=== PATIENT | female | born 1985 | race Caucasian/White ===

== ENCOUNTER 2018-05-13 11:28 | Outpatient (CLI) | payer OTHER ==
[2018-05-13 12:09] LABS: APPEARANCE,URINE CLOUDY; BILIRUBIN,URINE NEGATIVE (NEGATIVE); COLOR,URINE YELLOW; GLUCOSE, URINE NEGATIVE (NEGATIVE); KETONES,URINE TRACE mg/dL (NEGATIVE); LEUKOCYTE ESTERASE,URINE NEGATIVE (NEGATIVE); NITRITE,URINE NEGATIVE (NEGATIVE); PROTEIN,URINE NEGATIVE (NEGATIVE); URINE SPECIFIC GRAVITY 1.019; UROBILINOGEN,URINE NEGATIVE mg/dL (<2.0)
[2018-05-13 12:21] LABS: URINE AMPHETAMINES SCREEN NEGATIVE; URINE BARBITURATES SCREEN NEGATIVE; URINE BENZODIAZEPINES SCREEN NEGATIVE; URINE COCAINE SCREEN NEGATIVE; URINE MARIJUANA (THC) SCREEN NEGATIVE; URINE METHADONE SCREEN NEGATIVE; URINE PHENCYCLIDINE SCREEN NEGATIVE
--- NOTE | 2018-05-13 13:43 | Non Stress Test Report ---
Non Stress Test Datetime Report Generated by CPN: 05/13/2018 13:42 DEMOGRAPHIC EGA NST: 35.0 INDICATION Indication for Study: Other Indication for Study (NST) Other: patient fall VITAL SIGNS Temperature - NST: 98.8 Pulse - NST: 85 RESP - NST: 18 NBPSYS NST: 132 NBPDIA NST: 62 MONITORING Monitor Explained: Monitor Explained; Test Explained; Patient Verbalized Understanding Time on Monitor: 05/13/2018 11:52 Time off Monitor: 05/13/2018 12:56 NST Duration: 64 NST INTERVENTIONS NST Interventions: PO Hydration Physician Notified NST: Dr. Delcid BABY A: [id number] BABY A Movement : Present Contraction Frequency : irritability FHR Baseline : 130 Accelerations : 15X15 Decelerations : None Variability : Moderate 6-25bpm NST Review: Meets Criteria for Reactive NST NST Review and Verified By : PRESTON Reza NST Results: Reactive NST REPORT Report Trigger: Send Report
== END 2018-05-13 13:07 | disposition home or self-care (01) ==
LOC: LC 11:28
PROVIDERS: ATTEND Obstetrics & Gynecology Gynecology
PROC: 4A1HXCZ Monitoring of Products of Conception, Cardiac Rate, External Approach (ICD-10-PCS; principal; 2018-05-13)
DX: Z36.89 Encounter for other specified antenatal screening (principal); Z91.81 History of falling
CPT/HCPCS: 59025; 80307; 81001

== ENCOUNTER 2018-05-13 13:15 | Emergency (ER) | payer OTHER ==
[2018-05-13] MEDS ORDERED: ACETAMINOPHEN 325 MG TABLET PO ONE (14:02)
--- NOTE | 2018-05-13 14:06 | ER Document Report ---
ED General - General Chief Complaint: Fall Stated Complaint: WC FALL Time Seen by Provider: 05/13/18 14:02 Mode of Arrival: Ambulatory Information source: Patient, [facility] Records Notes: 33-year-old female at 35 weeks gestation presents with complaint of left ankle and left low back pain. Patient was recently evaluated by labor and delivery and states that she was monitored for a few hours prior to coming to the emergency department. Labor and delivery is in our hospital. She reports that just prior to arrival she had a lip and almost complete fall while at work. She states that she was able to grab onto the doorway and prevent falling all the way but since that time has experienced left sided low back pain and left ankle pain. Patient denies head injury, abdominal pain, vaginal bleeding. She reports an uneventful thus far. Patient denies head injury. TRAVEL OUTSIDE OF THE [place] IN LAST 30 DAYS: No - HPI Onset: Just prior to arrival Onset/Duration: Sudden Quality of pain: Achy, Throbbing Severity: Moderate Associated symptoms: denies: Chest pain, Diarrhea, Headache, Nausea, Vomiting, Shortness of breath Exacerbated by: Movement, Walking Relieved by: Remaining still Similar symptoms previously: No Recently seen / treated by doctor: Yes - Labor and delivery prior to arrival - Related Data Allergies/Adverse Reactions: No Known Allergies Allergy (Verified 05/13/18 12:09) Past Medical History - General Information source: Patient, [facility] Records - Social History Smoking Status: Former Smoker Frequency of alcohol use: None Drug Abuse: None Lives with: Family Family History: Reviewed & Not Pertinent Patient has suicidal ideation: No Patient has homicidal ideation: No - Medical History Medical History: Negative - Immunizations Hx Diphtheria, Pertussis, Tetanus Vaccination: No Review of Systems - Review of Systems Notes: REVIEW OF SYSTEMS: CONSTITUTIONAL : Denies fever, chills, or sweats. Denies recent illness. Denies weight loss, recent hospitalizations. EENT: Denies visual changes, eye pain. Denies sore throat, oral lesions, difficulty swallowing. CARDIOVASCULAR: Denies chest pain. Denies palpitations. Denies lower extremity edema. RESPIRATORY: Denies cough. Denies shortness of breath, wheezing. GASTROINTESTINAL: Denies abdominal pain or distention. Denies nausea, vomiting , or diarrhea. Denies blood in vomitus, stools, or per rectum. Denies black, tarry stools. Denies constipation. GENITOURINARY: Denies difficulty urinating, painful urination, frequency, blood in urine, or vaginal discharge. MUSCULOSKELETAL: Denies neck pain or stiffness. SKIN: Denies rash, lesions or sores. HEMATOLOGIC : Denies easy bruising or bleeding. LYMPHATIC: Denies swollen glands. NEUROLOGICAL: Denies confusion or altered mental status. Denies loss of consciousness. Denies dizziness or lightheadedness. Denies headache. Denies weakness or paralysis. Denies problems difficulty with ambulation, slurred speech. Denies sensory loss, numbness, or tingling. Denies seizures. PSYCHIATRIC: Denies anxiety or stress. Denies depression, suicidal ideation, or homicidal ideation. Denies visual or auditory hallucinations. Physical Exam - Vital signs Vitals: Temp Pulse Resp BP Pulse Ox 98.1 F 82 20 112/65 98 05/13/18 13:21 05/13/18 13:21 05/13/18 13:21 05/13/18 13:21 05/13/18 13:21 - Notes Notes: PHYSICAL EXAMINATION: GENERAL: Well-appearing, well-nourished and in no acute distress. HEAD: Atraumatic, normocephalic. EYES: Pupils equal round and reactive to light, extraocular movements intact, conjunctiva are normal. ENT: Nares patent, oropharynx clear without exudates. Moist mucous membranes. NECK: Normal range of motion, supple without lymphadenopathy LUNGS: Breath sounds clear to auscultation bilaterally and equal. No wheezes rales or rhonchi. HEART: Regular rate and rhythm without murmurs ABDOMEN: Soft, nontender, nondistended abdomen. No guarding, no rebound. No masses appreciated. Female : deferred Musculoskeletal: Normal range of motion, no pitting or edema. No cyanosis. Left ankle without tenderness, deformity, swelling, ecchymosis. PT and DP pulse intact. Patient able to wiggle her toes. She is ambulating without difficulty. Left lumbar paraspinal tenderness with palpation. No ecchymosis. No midline tenderness of the lumbar spine. NEUROLOGICAL: Cranial nerves grossly intact. Normal speech, normal gait. Normal sensory, motor exams PSYCH: Normal mood, normal affect. SKIN: Warm, Dry, normal turgor, no rashes or lesions noted. Course - Re-evaluation Re-evalutation: 05/13/18 20:17 33-year-old female at 35 weeks gestation presents after a slip fall at work prior to arrival. She is coming from labor and delivery where she was monitored for a few hours and reports that everything appeared well with the baby. Patient currently complaining of left low back pain and left ankle pain. Exam is significant for reproducible tenderness of the low back pain. Patient has no significant tenderness of the ankle or foot. She has no obvious deformity. She has been ambulating. The auto ankle roll patient has unlikely sustained a fracture of the ankle. No imaging will be performed at this time. Patient was provided an Pranav wrap. She was advised to rest, ice and elevate when possible. Patient agreeable to skip imaging of her ankle and back at this time. She was advised to ice and take Tylenol as needed. Patient was evaluated and treated as appropriate for the patient's presenting symptoms and complaint, with consideration of any critical or life threatening conditions that may be associated with their obtained history and exam as noted above. All results were discussed with patient. Patient provided the opportunity to ask questions, and express concerns. Patient was educated on treatments based on their presumed diagnosis as noted above. At this time we will discharge the patient with return precautions and follow-up recommendations. Verbal discharge instructions given a the bedside. Medication warnings reviewed. Patient is in agreement with this plan and has verbalized understanding of return precautions. After careful consideration I feel that that patient can be safely discharged from the emergency department, they were advised to followup with a primary care physician in 2-3 days. Dictation on this chart was performed using voice recognition software and may result in unintended grammatical, spelling, syntax or errors. - Vital Signs Vital signs: Temp Pulse Resp BP Pulse Ox 98.1 F 75 16 138/85 H 99 05/13/18 13:21 05/13/18 14:33 05/13/18 14:33 05/13/18 14:33 05/13/18 14:33 Discharge - Discharge Clinical Impression: Slipping, tripping and stumbling without falling due to stepping from one level to another, initial encounter, Third trimester Left ankle sprain Qualifiers: Encounter type: initial encounter Involved ligament of ankle: unspecified ligament Qualified Code(s): S93.402A - Sprain of unspecified ligament of left ankle, initial encounter Low back strain Qualifiers: Encounter type: initial encounter Qualified Code(s): S39.012A - Strain of muscle, fascia and tendon of lower back, initial encounter Condition: Good Disposition: HOME, SELF-CARE Instructions: Ice Packs ([facility]), Splint Precautions ([facility]), Sprained Ankle ([facility]) Additional Instructions: You have been seen in the Emergency Department (ED) today for back pain. Your workup and exam have not shown any acute abnormalities and you are likely suffering from muscle strain or possible problems with your discs, but there is no treatment that will fix your symptoms at this time. Please take t Tylenol 1000 mg every 6 hours. You should also purchase a local lidocaine cream such as "aspercreme with lidocaine" and use per bottle instructions to the affected area. Apply ice to the area as often as you are able. Continue to keep active and avoid prolonged periods of bed rest. Please follow up with your doctor as soon as possible regarding today's ED visit and your back pain. Return to the ED for worsening back pain, fever, weakness or numbness of either leg, or if you develop either (1) an inability to urinate or have bowel movements, or (2) loss of your ability to control your bathroom functions (if you start having "accidents"), or if you develop other new symptoms that concern you.concern you. Referrals: MARIA GUADALUPE NEGRETE MD [Primary Care Provider] - Follow up as needed
[2018-05-13 14:33] VITALS: BP 138/85
== END 2018-05-13 14:37 | disposition home or self-care (01) ==
LOC: ER 13:15
DX: O9A.213 Injury, poisoning and certain other consequences of external causes complicating pregnancy, third trimester (principal); S93.402A Sprain of unspecified ligament of left ankle, initial encounter; S39.012A Strain of muscle, fascia and tendon of lower back, initial encounter; Z3A.35 35 weeks gestation of pregnancy; W01.0XXA Fall on same level from slipping, tripping and stumbling without subsequent striking against object, initial encounter; Y99.0 Civilian activity done for income or pay
CPT/HCPCS: 99283; L1902

== ENCOUNTER 2018-06-13 04:04 | Inpatient (IN) | payer OTHER ==
[2018-06-13 04:44] LABS: APPEARANCE,URINE SLIGHTLY-CLOUDY; BILIRUBIN,URINE NEGATIVE (NEGATIVE); COLOR,URINE YELLOW; GLUCOSE, URINE NEGATIVE (NEGATIVE); KETONES,URINE NEGATIVE (NEGATIVE); LEUKOCYTE ESTERASE,URINE NEGATIVE (NEGATIVE); NITRITE,URINE NEGATIVE (NEGATIVE); PROTEIN,URINE NEGATIVE (NEGATIVE)
[2018-06-13 04:59] LABS: URINE AMPHETAMINES SCREEN NEGATIVE; URINE BARBITURATES SCREEN NEGATIVE; URINE BENZODIAZEPINES SCREEN NEGATIVE; URINE COCAINE SCREEN NEGATIVE; URINE MARIJUANA (THC) SCREEN NEGATIVE; URINE METHADONE SCREEN NEGATIVE; URINE PHENCYCLIDINE SCREEN NEGATIVE
[2018-06-13] MEDS ORDERED: OXYTOCIN 10 UNIT/ML VIAL ONE (05:33)
[2018-06-13] MEDS ORDERED: LIDOCAINE 1% INJ-PF (10 MG/ML) 30 ML SDV ONE (05:33)
[2018-06-13] MEDS ORDERED: OXYTOCIN/NORMAL SALINE 20 UNIT/1,000 ML RTUINJ ONE (05:33)
[2018-06-13] MEDS ORDERED: MISOPROSTOL 0.2 MG TABLET ONE (05:33)
[2018-06-13] MEDS ORDERED: RINGERS SOLUTION,LACTATED 1,000 ML IV PRN (05:42)
[2018-06-13 05:52] LABS: ABSOLUTE BASOPHILS # (AUTO) 0.1 10^3/uL (0.0-0.2); ABSOLUTE EOSINOPHILS # (AUTO) 0.2 10^3/uL (0.0-0.6); ABSOLUTE LYMPHOCYTES (AUTO) 2.2 10^3/uL (0.5-4.7); ABSOLUTE MONOCYTES (AUTO) 1.2 10^3/uL (0.1-1.4); ABSOLUTE NEUT (AUTO) 11.7 10^3/uL (1.7-8.2); BASOPHILS % (AUTO) 0.6 % (0-2); EOSINOPHILS % (AUTO) 1.2 % (0-6); HEMATOCRIT 42.1 % (36.0-47.0); HEMOGLOBIN 14.6 g/dL (12.0-15.5); LYMPHOCYTES % (AUTO) 14.3 % (13-45); MEAN CORPUSCULAR HEMOGLOBIN 32.5 pg (27.0-33.4); MEAN CORPUSCULAR HGB CONC 34.6 g/dL (32.0-36.0); MEAN CORPUSCULAR VOLUME 94 fl (80-97); MONOCYTES % (AUTO) 7.9 % (3-13); PLATELET COUNT 189 10^3/uL (150-450); RED BLOOD COUNT 4.48 10^6/uL (3.72-5.28); RED CELL DISTRIBUTION WIDTH 13.8 % (11.5-14.0); TOTAL CELLS COUNTED % (AUTO) 100 %; WHITE BLOOD COUNT 15.4 10^3/uL (4.0-10.5)
[2018-06-13] MEDS ORDERED: PENICILLIN G-K 5 MILLION UNIT VIAL ONE (05:52)
--- NOTE | 2018-06-13 06:23 | Admission Physical ---
Datetime Report Generated by CPN: 06/13/2018 06:23 CURRENT ADMISSION Chief Complaint: Uterine Contractions Chief Complaint Other: Pt presented with contractions. Indication for Induction: Not Applicable Admit Impression : Term, Intrauterine ; Ruptured Membranes Admit Impression- Other: She progressed from 2 to 7cm and was admitted for active labor. GBS pos. +FM, no lof, no vag bleeding. Admit Plan: Initiate Labor Protocol ALLERGIES Medication Allergies: No Medication Allergies: No Known Allergies (06/13/2018) Latex: No Latex Allergies Food Allergies: None Environmental Allergies: None OBSTETRICAL HISTORY EDC: 06/17/2018 00:00 : 5 Para: 3 Term: 3 : 0 SAB: 1 IAB: 0 Livin Gestational Diabetes: Yes Rh Sensitization: No Incompetent Cervix: No KINA: No Infertility: No ART Treatment: No Uterine Anomaly: No IUGR: No Hx Previous C/S: No Macrosomia: No Hx Loss/Stillborn: No PIH: No Hx : No Placenta Previa/Abruption: No Depression/PP Depression: No PTL/PROM: No Post Hemorrhage: No Current Procedures: Ultrasound; NST Obstetrical History Comments: G1: 09/2005- 42 weeks M G2:2008 G3:2011 40 weeks M 8 lbs 5oz at 2 months old SIDS G4:2012 M 8 lbs 13 oz GDM G5: 2014 G6: current GDM(should be A2) on glyburide SEE RECORDS Alcohol: No Marijuana : No Cocaine: No Other Illicit Drugs: No Cigarettes: Never Smoker. 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 Surgery: No Heart Disease: No Hosp/Surgery: No Autoimmune Disorder: No Anesthetic Complications: No Kidney Disease: No Abnormal Pap Smear: Yes Neuro/Epilepsy: No Psychiatric Disorders: No Other Medical Diseases: No Hepatitis/Liver Disease: No Significant Family History: No Varicosities/Phlebitis: No Trauma/Violence : No Thyroid Dysfunction: No Medical History Comments: 2005- abnormal pap/colp +HPV INFECTIOUS HISTORY Gonorrhea: No Genital Herpes: No Chlamydia: No Tuberculosis: No Syphilis: No Hepatitis: No HIV/AIDS Exposure: No Rash or Viral Illness: No HPV: No PHYSICAL EXAM General: Normal HEENT: Normal Neurologic: Normal Thyroid: Normal Heart: Normal Lungs: Normal Breast: Normal Back: Normal Abdomen: Normal Genitourinary Exam: Normal Extremities: Normal DTRs: Normal Pelvic Type: Not Done Vital Signs: Reviewed; Within Normal Limits VAGINAL EXAM Dilatation: 7 Effacement: 100 Station: -1 Contraction Comments: every 2 minutes MEMBRANES Membranes: Intact FETUS A EGA: 39.3 Monitoring: External US FHR- Baseline: 145 Variability: Moderate 6-25bpm Accelerations: 15X15 Decelerations: None FHR Category: Category I Estimated Weight (gm): 3600 Presentation: Vertex Admit Comment: Pt admitted in active labor. GBS pos and PCN given. On glyburide for GDMA2. Blood sugar on admission collected. Proven to 8lb 13 oz. EFW 3600. Anticipate delivery. PLANS FOR LABOR AND DELIVERY Labor and Delivery: None Pain Management: Natural Feeding Preference: Breast Benefit of Breast Feed Discussed: Yes Circumcision: N/A INFORMED CONSENT Informed Consent Obtained: Vaginal Delivery; Risks, Benefits and Alternatives Discussed Signature: with User ID: [email or web address]
[2018-06-13] MEDS ORDERED: BENZOCAINE/MENTHOL AEROSOL SPRAY 56 ML TOP PRN (06:42)
[2018-06-13] MEDS ORDERED: GLYCERIN/WITCH HAZEL LEAF 1 EACH MED..PAD TP PRN (06:42)
[2018-06-13] MEDS ORDERED: DIPHENHYDRAMINE HCL 25 MG CAPSULE PO PRN (06:42)
[2018-06-13] MEDS ORDERED: PROMETHAZINE HCL 25 MG SUPP.RECT PR PRN (06:42)
[2018-06-13] MEDS ORDERED: PROMETHAZINE HCL 25 MG TABLET PO PRN (06:42)
[2018-06-13] MEDS ORDERED: OXYTOCIN/NORMAL SALINE 20 UNIT/1,000 ML RTUINJ IV PRN (06:42)
[2018-06-13] MEDS ORDERED: NA PHOS,M-B/NA PHOS,DI-BA (ADULT) 133 ML ENEMA PR PRN (06:42)
[2018-06-13] MEDS ORDERED: MEASLES,MUMPS&RUBELLA VACC/PF 0.5 ML VIAL SUBCUT PRN (06:42)
[2018-06-13] MEDS ORDERED: DIPH/PERTUSS(ACELL)/TETANUS VAC/PF 0.5 ML SYR (>=10YO) IM PRN (06:42)
[2018-06-13] MEDS ORDERED: PSEUDOEPHEDRINE HCL 30 MG TABLET PO PRN (06:42)
[2018-06-13] MEDS ORDERED: ZOLPIDEM TARTRATE 5 MG TABLET PO PRN (06:42)
[2018-06-13] MEDS ORDERED: MAGNESIUM HYDROXIDE SUSP 30 ML UDCUP PO PRN (06:42)
[2018-06-13] MEDS ORDERED: DIBUCAINE 1% OINTMENT 28 GM TP PRN (06:42)
[2018-06-13] MEDS ORDERED: ACETAMINOPHEN WITH CODEINE #3 TABLET PO PRN ×2 (06:42)
[2018-06-13] MEDS ORDERED: PROMETHAZINE HCL INJ 25 MG/1 ML VIAL IV PRN (06:42)
[2018-06-13] MEDS ORDERED: ACETAMINOPHEN 650 MG SUPP.RECT PR PRN (06:42)
--- NOTE | 2018-06-13 09:12 | Delivery Summary ---
Del Sum A-C Datetime Report Generated by CPN: 06/13/2018 09:12 DELIVERY PERSONNEL DELIVERY PERSONNEL: [id number] Delivery Doctor:: Rocio Marvin MD Labor and Delivery Nurse:: Alisa Garcia RNflotation operator Nurse:: Chaparrita Olivo RN Nursery Nurse:: Darlene Gant RN MATERNAL INFORMATION Delivery Anesthesia: None Medications After Delivery: Pitocin Bolus-Please Comment Meds After Delivery Comment: pitocin 20 units/1000 mL NS bolus folowing placenta Estimated Blood Loss (ml): 300 Maternal Complications: None Provider Comments: Pt rapidly progressed to c/c/+2 with buldging bag. SROM clear fluid with pushing. With great maternal effort head delivered OA over intact perineum. Restituted ROT. With gentle downward pressure left anterior shoulder delivered. With gentle upward pressure right posterior shoulder and body delivered. Baby with spontaneous cry. Placed on maternal abdomen. Cord clamped x2 and cut by FOB. Routine cord blood collected. With gentle traction placenta with 3VC delivered. Pitocin 30mU started. Fundus massaged to firm. Inspected cervix and perineum, no lacerations. No sponges used and sharps accounted for. Mother and baby in stable condition when provider left room. Dr. Marvin LABOR SUMMARY EDC: 06/17/2018 00:00 No. Babies in Womb: 1 Attempted: No Labor Anesthesia: None LABOR INFORMATION Reason for Induction: Not Applicable Onset of Labor: 06/13/2018 04:21 Complete Dilatation: 06/13/2018 06:20 Group B Beta Strep: positive Antibiotics # of Doses: 1 Antibiotics Time of Last Dose: 0559 Name of Antibiotic Given: PCN Steroids Given: None Reason Steroids Not Administered: Not Applicable MEMBRANES Membranes Rupture Method: Spontaneous Rupture of Membranes: 06/13/2018 06:29 Length of Rupture (hr): 0.02 Amniotic Fluid Color: Clear Amniotic Fluid Amount: Moderate Amniotic Fluid Odor: Normal STAGES OF LABOR Stage 1 hr: 1 Stage 1 min: 59 Stage 2 hr: 0 Stage 2 min: 10 Stage 3 hr: 0 Stage 3 min: 3 Total Time in Labor hr: 2 Total Time in Labor min: 12 VAGINAL DELIVERY Episiotomy: None Laceration #1: None Laceration Extension #1: N/A Laceration Repair: Not Applicable Sponge Count Correct: N/A Sharps Count Correct: N/A CSECTION DELIVERY Primary Indication: N/A Secondary Indication: N/A CSection Incidence: N/A Labor: N/A Elective: N/A BABY A INFORMATION Delivery Date/Time: 06/13/2018 06:30 Method of Delivery: Vaginal Born in Route : No : N/A Forceps: N/A Vacuum Extraction: N/A Shoulder Dystocia : No PRESENTATION/POSITION BABY A Presentation: Cephalic Cephalic Presentation: N/A Vertex Position: Right Occipital Anterior Breech Presentation: N/A PLACENTA INFORMATION BABY A Placenta Delivery Time : 06/13/2018 06:33 Placenta Method of Delivery: Spontaneous Placenta Status: Delivered SCORES BABY A Heart Rate 1 min: >100 bpm Resp Effort 1 min: Good Cry Reflex Irritability 1 min: Cough or Sneeze or Pulls Away Muscle Tone 1 min: Active Motion Color 1 min: Body [place], Extremities Blue SCORE 1 MIN: 9 Heart Rate 5 min: >100 bpm Resp Effort 5 min: Good Cry Reflex Irritability 5 min: Cough or Sneeze or Pulls Away Muscle Tone 5 min: Active Motion Color 5 min: Body [place], Extremities Blue Resuscitation Effort 5 min: Tactile Stimulation SCORE 5 MIN: 9 INFANT INFORMATION BABY A Gestational Age at Delivery: 39.3 Gestational Status: Full Term- 39- 40.6 Weeks Outcome : Liveborn Condition : Stable Infant Sex: Female IDENTIFICATION BABY A Verification Date/Time: 06/13/2018 06:39 ID Band Number: [id number] Mother's Name Verified: Yes Infant RN Verifying Infant: Asha SamsonOri RN Additional Verifying Personnel: Aniya Gant RN CORD INFORMATION BABY A No. Cord Vessels: 3 Nuchal Cord : N/A Cord Blood Taken: Yes-For Storage (Mom's Blood type +) ASSESSMENT BABY A Infant Complications: None Physical Findings at Delivery: Within Normal Limits Skin to Skin: Yes Transferred To: Remains with Mother SIGNATURES Signature: with User ID: [email or web address]
[2018-06-13] MEDS ORDERED: SENNOSIDES/DOCUSATE 8.6-50 MG 1 EACH TABLET ONE (10:10)
[2018-06-13] MEDS ORDERED: PRENATAL VITAMIN W DHA CAPSULE PO ONE (10:10)
[2018-06-13] MEDS ORDERED: FERROUS SULFATE 325 MG TABLET PO ONE (10:11)
[2018-06-13] MEDS ORDERED: DOCUSATE SODIUM 100 MG CAPSULE ONE (10:11)
[2018-06-13] MEDS: DOCUSATE SODIUM 100 MG CAPSULE PO SCH ×2 (10:13→17:22)
[2018-06-13] MEDS: SENNOSIDES/DOCUSATE 8.6-50 MG 1 EACH TABLET PO SCH (10:13)
[2018-06-13] MEDS: PRENATAL VITAMIN W DHA CAPSULE PO SCH (10:13)
[2018-06-13] MEDS: FERROUS SULFATE 325 MG TABLET PO SCH ×2 (10:13→17:22)
[2018-06-13] MEDS: FAMOTIDINE 20 MG TABLET PO SCH ×2 (15:45→21:31)
[2018-06-13] MEDS: IBUPROFEN 800 MG TABLET PO SCH ×2 (15:47→21:31)
[2018-06-14] MEDS: IBUPROFEN 800 MG TABLET PO SCH ×3 (05:34→21:22)
[2018-06-14 07:18] LABS: HEMATOCRIT 39.8 % (36.0-47.0); HEMOGLOBIN 13.6 g/dL (12.0-15.5); MEAN CORPUSCULAR HEMOGLOBIN 32.2 pg (27.0-33.4); MEAN CORPUSCULAR HGB CONC 34.2 g/dL (32.0-36.0); MEAN CORPUSCULAR VOLUME 94 fl (80-97); PLATELET COUNT 191 10^3/uL (150-450); RED BLOOD COUNT 4.23 10^6/uL (3.72-5.28); WHITE BLOOD COUNT 17.1 10^3/uL (4.0-10.5)
[2018-06-14] MEDS: FERROUS SULFATE 325 MG TABLET PO SCH ×2 (09:26→17:40)
[2018-06-14] MEDS: FAMOTIDINE 20 MG TABLET PO SCH ×2 (09:27→21:22)
[2018-06-14] MEDS: DOCUSATE SODIUM 100 MG CAPSULE PO SCH ×2 (09:27→17:40)
[2018-06-14] MEDS: SENNOSIDES/DOCUSATE 8.6-50 MG 1 EACH TABLET PO SCH (09:27)
[2018-06-14] MEDS: PRENATAL VITAMIN W DHA CAPSULE PO SCH (09:27)
--- NOTE | 2018-06-14 10:22 | PDOC PROGRESS REPORT ---
Subjective-OB Progress Note for:: 06/14/18 Subjective: reports bleeding slowing, pain controlled with current meds. no needs expressed Physical Exam (OB) Vital Signs: Temp Pulse Resp BP Pulse Ox 97.9 F 84 15 132/83 H 97 06/14/18 07:57 06/14/18 07:57 06/14/18 07:57 06/14/18 07:57 06/14/18 07:57 Intake & Output 06/13/18 06/14/18 06/15/18 06:59 06:59 06:59 Intake Total 500 Balance 500 Weight 118.8 kg - Abdomen Description: Soft, Round Hernia Present: No Fundal Description: Firm, Midline Fundal Height: u/u - u/2 - Abdominal Distension: No distension Tenderness: Nontender - Extremities Lower extremities: Edgar's sign - neg Calf: Normal, Nontender Objective-Diagnostic Laboratory: 06/14/18 06:26 06/14/18 06:26 WBC 17.1 H RBC 4.23 Hgb 13.6 Hct 39.8 MCV 94 MCH 32.2 MCHC 34.2 RDW 14.0 Plt Count 191 Assessment and Plan(PN) - Assessment and Plan (1) Gestational diabetes mellitus (GDM) controlled on oral hypoglycemic drug Is this a current diagnosis for this admission?: Yes (2) Vaginal delivery Is this a current diagnosis for this admission?: Yes - Time Spent with Patient Time with patient: Less than 15 minutes - Disposition Anticipated Discharge: Home Within: within 24 hours
[2018-06-15] MEDS: IBUPROFEN 800 MG TABLET PO SCH (06:27)
[2018-06-15 08:36] VITALS: BP 121/77
[2018-06-15] MEDS: PRENATAL VITAMIN W DHA CAPSULE PO SCH (10:03)
[2018-06-15] MEDS: DOCUSATE SODIUM 100 MG CAPSULE PO SCH (10:03)
[2018-06-15] MEDS: FERROUS SULFATE 325 MG TABLET PO SCH (10:04)
[2018-06-15] MEDS: SENNOSIDES/DOCUSATE 8.6-50 MG 1 EACH TABLET PO SCH (10:04)
[2018-06-15] MEDS: FAMOTIDINE 20 MG TABLET PO SCH (10:04)
--- NOTE | 2018-06-15 11:19 | PDOC DISCHARGE SUMMARY ---
Final Diagnosis Discharge Date: 06/15/18 - Final Diagnosis (1) Gestational diabetes mellitus (GDM) controlled on oral hypoglycemic drug Is this a current diagnosis for this admission?: Yes (2) Vaginal delivery Is this a current diagnosis for this admission?: Yes (3) Precipitous delivery Is this a current diagnosis for this admission?: Yes (4) Carrier of group B Streptococcus Is this a current diagnosis for this admission?: Yes Discharge Data - Discharge Medication Prescriptions: Ibuprofen [Motrin 800 mg Tablet] 800 mg PO Q8HP PRN #30 tablet PRN Reason: Abdominal Cramping Home Medications: Pnv W-O Ca No5/Fe Fumarate/FA [-U Multiple Vitamin Capsule] 1 cap PO DAILY 07/28/11 Ibuprofen [Motrin 800 mg Tablet] 800 mg PO Q8HP PRN #30 tablet 06/15/18 Reason(s) for Admission: Onset of Labor Procedures: NST, Ultrasound Intrapartum Procedure(s): Spontaneous Vaginal Delivery - Diagnosis Test Laboratory: Temp Pulse Resp BP Pulse Ox 98.0 F 97 18 121/77 97 06/15/18 07:55 06/15/18 07:55 06/15/18 07:55 06/15/18 07:55 06/15/18 07:55 06/13/18 06/13/18 06/14/18 04:28 05:34 06:26 RBC 4.48 4.23 Hgb 14.6 13.6 Hct 42.1 39.8 Urine Opiates Screen NEGATIVE - Discharge information/Instructions Discharge Activity: Activity As Tolerated, Balance Activity w/Rest, No Lifting Over 10 Pounds, Pelvic Rest, No tub bath, Walk Frequently Discharge Diet: As Tolerated, Regular Disposition: HOME, SELF-CARE Follow up with: [facility] in: 4, Weeks
== END 2018-06-15 12:43 | disposition home or self-care (01) | DRG 807 ==
LOC: LC 04:04 → LR 05:33 → 2S 14:15
PROVIDERS: ADMIT Obstetrics & Gynecology; ATTEND Obstetrics & Gynecology
PROC: 10E0XZZ Delivery of Products of Conception, External Approach (ICD-10-PCS; principal; 2018-06-13)
PROC: 4A1HXCZ Monitoring of Products of Conception, Cardiac Rate, External Approach (ICD-10-PCS; 2018-06-13)
DX: O24.425 Gestational diabetes mellitus in childbirth, controlled by oral hypoglycemic drugs (principal); O99.824 Streptococcus B carrier state complicating childbirth; O62.3 Precipitate labor; Z86.19 Personal history of other infectious and parasitic diseases; Z37.0 Single live birth; Z3A.39 39 weeks gestation of pregnancy
CPT/HCPCS: 36415; 80307; 81005; 85025; 85027; 86592; 86850; 86900; 86901; J2540; J2590; J3490

== ENCOUNTER 2018-08-30 05:25 | Day surgery (SDC) | payer OTHER ==
[2018-08-26 11:05] LABS: APPEARANCE,URINE CLEAR; BILIRUBIN,URINE NEGATIVE (NEGATIVE); COLOR,URINE YELLOW; GLUCOSE, URINE NEGATIVE (NEGATIVE); KETONES,URINE NEGATIVE (NEGATIVE); LEUKOCYTE ESTERASE,URINE SMALL (NEGATIVE); NITRITE,URINE NEGATIVE (NEGATIVE); PROTEIN,URINE NEGATIVE (NEGATIVE); URINE SPECIFIC GRAVITY 1.012; UROBILINOGEN,URINE NEGATIVE mg/dL (<2.0)
[2018-08-26 11:05] LABS: HEMATOCRIT 39.7 % (36.0-47.0); HEMOGLOBIN 13.9 g/dL (12.0-15.5); MEAN CORPUSCULAR HEMOGLOBIN 32.3 pg (27.0-33.4); MEAN CORPUSCULAR VOLUME 92 fl (80-97); PLATELET COUNT 223 10^3/uL (150-450); RED BLOOD COUNT 4.31 10^6/uL (3.72-5.28); RED CELL DISTRIBUTION WIDTH 12.8 % (11.5-14.0); WHITE BLOOD COUNT 10.2 10^3/uL (4.0-10.5)
[~2018-08-30 05:25] MED LIST: LACTATED RINGERS 1000 ML IV PRN; LIDOCAINE 0.5% INJ-PF (5 MG/ML) 50 ML SDV SUBCUT PRN
[2018-08-30] MEDS ORDERED: MIDAZOLAM 2 MG/2 ML INJ ONE (06:19)
[2018-08-30] MEDS ORDERED: FENTANYL CITRATE INJ/PF 100 MCG/2 ML AMPUL ONE (06:19)
[2018-08-30] MEDS ORDERED: LIDOCAINE 2% INJ-PF (100 MG/5 ML) SYRINGE ONE (06:19)
[2018-08-30] MEDS ORDERED: ONDANSETRON HCL INJ/PF 4 MG/2 ML SDV ONE (06:20)
[2018-08-30] MEDS ORDERED: ACETAMINOPHEN 1,000 MG/100 ML RTUPB IV ONE (06:20)
[2018-08-30] MEDS ORDERED: PROPOFOL INJ 200 MG/20 ML VIAL IV ONE (06:20)
[2018-08-30] MEDS ORDERED: DEXAMETHASONE SOD PHOSPHATE INJ 4 MG/1 ML VIAL ONE (06:20)
[2018-08-30] MEDS ORDERED: SUGAMMADEX SODIUM 200 MG/2 ML SDV IV ONE (06:21)
[2018-08-30] MEDS ORDERED: BUPIVACAINE HCL 0.25 % INJ/PF (2.5 MG/1 ML) 30 ML VIAL ONE (07:09)
[2018-08-30] MEDS ORDERED: FENTANYL CITRATE INJ/PF 100 MCG/2 ML AMPUL IV PRN ×3 (07:50)
[2018-08-30] MEDS ORDERED: MEPERIDINE HCL/PF INJ 25 MG/1 ML DISP.SYRIN IV PRN (07:50)
[2018-08-30] MEDS ORDERED: ONDANSETRON HCL INJ/PF 4 MG/2 ML SDV IV PRN ×2 (07:50→09:13)
[2018-08-30] MEDS ORDERED: PROMETHAZINE HCL INJ 25 MG/1 ML VIAL IV PRN ×2 (07:50)
[2018-08-30] MEDS ORDERED: DIPHENHYDRAMINE HCL 50 MG/ML VIAL IV PRN (07:50)
[2018-08-30] MEDS ORDERED: MORPHINE SULFATE 10 MG/ML INJ IV PRN (07:50)
--- NOTE | 2018-08-30 08:41 | Operative Report ---
Operative Report DATE OF SURGERY: 08/30/18 PREOPERATIVE DIAGNOSIS: 1. Multiparity. 2. Completed family status. 3. Jass ires permanent sterilization POSTOPERATIVE DIAGNOSIS: Same OPERATION: Laparoscopic bilateral partial salpingectomy with Endoloops SURGEON: MODE CAMPOS ANESTHESIA: GA TISSUE REMOVED OR ALTERED: Right and left partial fallopian tubes (fimbriated end) COMPLICATIONS: None ESTIMATED BLOOD LOSS: 20 mL INTRAOPERATIVE FINDINGS: Normal uterus, bilateral tubes and ovaries; Normal appearing liver PROCEDURE: The patient was taken to the operating room where general anesthesia was obtained without difficulty. She was then placed in dorsal supine lithotomy position and prepped and draped in the normal sterile fashion. [place] speculum was then placed in the patient's vagina and the anterior lip of the cervix grasped with a single-tooth tenaculum. An acorn uterine manipulator was then advanced into the uterus to provide a means of manipulation of the uterus. The speculum and tenaculum were then removed from the patient's cervix and vagina. Attention was then turned to the patient's abdomen where a 5 mm skin incision was then made in the umbilicus. The Optiview trocar with 0 laparoscope was then advanced without difficulty under direct visualization with the Optiview trocar. This was performed while tenting the abdominal wall. Intraperitoneal placement was confirmed by the direct visualization. Pneumoperitoneum was then obtained with approximately 4 L carbon dioxide gas. Survey of the patient's abdomen and pelvis revealed findings as noted above. Two 5 mm lateral ports were placed under direct visualization. The right fallopian tube was then identified and followed out to the fimbriated end. A PDS Endoloop was placed at the fimbriated end, abutting the ovary. The tube was the transected and the Endoloop cut. Hemostasis was noted. The right partial tube was removed through the trocar and handed off to the OR Tech. Attention was then turned to the left fallopian tube which was transected in the same manner. The tube was also handed to the OR Tech also. Laparoscopic pictures were taken before and after the procedure. All operative sites were visualized and noted to be hemostatic. The CO2 gas wsa then turned off and allowed to escape from the patient's abdomen. All trocars were then removed. The skin at all trocar sites were closed with 4-0 Vicryl in a subcuticular fashion with overlying Dermabond. No antibiotics were indicated for this procedure. After completion of skin closure of the trocar sites attention was then turned to the vagina where the acorn uterine manipulator was removed and the bivalve speculum was replaced. Monsel's solution was applied to the tenaculum sites for hemostasis and the speculum was removed. Sponge, lap, needle and instrument counts were correct 3. The patient tolera mariajose the procedure well and was taken to the recovery area awake and in stable condition.
[2018-08-30] MEDS ORDERED: KETOROLAC TROMETHAMINE INJ/PF 30 MG/1 ML SDV ONE (08:43)
[2018-08-30] MEDS: FENTANYL CITRATE INJ/PF 100 MCG/2 ML AMPUL ONE ×2 (08:45→08:49)
[2018-08-30] MEDS ORDERED: ROCURONIUM BROMIDE INJ 50 MG/5 ML VIAL IV ONE (08:58)
[2018-08-30] MEDS ORDERED: SUCCINYLCHOLINE CHLORIDE INJ 200 MG/10 ML VIAL ONE (08:58)
[2018-08-30] MEDS ORDERED: OXYCODONE-ACETAMINOPHEN 5-325 MG TABLET PO PRN (09:13)
[2018-08-30] MEDS ORDERED: PROMETHAZINE HCL INJ 25 MG/1 ML VIAL ONE (09:14)
[2018-08-30] MEDS ORDERED: OXYCODONE-ACETAMINOPHEN 5-325 MG TABLET ONE (09:38)
[2018-08-30 11:12] VITALS: BP 139/80
== END 2018-08-30 10:35 | disposition home or self-care (01) ==
LOC: OROUT 05:25
PROVIDERS: ATTEND Obstetrics & Gynecology
DX: Z30.2 Encounter for sterilization (principal); E66.9 Obesity, unspecified; Z68.41 Body mass index [BMI] 40.0-44.9, adult; R01.1 Cardiac murmur, unspecified
CPT/HCPCS: 36415; 85027; 81005; 81025; 88302 ×2; 58670; J2250; J3490 ×2; J1100; J3010; J2001; J1885; J2550; J0330; J2405; J2704; J0131; 851